=== PATIENT | female | born 1995 | race Caucasian/White ===

== ENCOUNTER → 2018-08-18 | Outpatient (CLI) | payer OTHER ==
--- NOTE | 2018-08-18 22:38 | MR ---
EXAMINATION TYPE: MR brain wo/w con DATE OF EXAM: 08/18/2018 COMPARISON: CT brain March 28, 2000 HISTORY: Visual field defect /Disturbance TECHNIQUE: Multiplanar, multisequence images of the brain and brainstem is performed without and with IV contras t, utilizing 5.5 mL intravenous Gadavist . FINDINGS: Diffusion weighted images demonstrate no evidence of a recent infarct or other diffusion ab normality. There is no worrisome extra-axial fluid collection. The ventricular system and cisternal spaces are normal in size and appearance. The brain volume is age appropriate. Nonspecific increase d T2 signal right parietal occipital level axial images 21 through 25 seen best on FLAIR sequences no laura. Midline structures demonstrate normal morphology. The craniocervical junction appears within normal limits. Post contrast images demonstrate no abnormal enhancement. The dural venous sinuses appear pa tent. The visualized sinuses are clear and the globes are intact. Suprasellar cistern is maintained. Optic chiasm is not effaced. No suspicious enhancement along course of optic nerves is clearly seen. IMPRESSION: Nonspecific vague but confluent T2 hyperintense signal right parietal region without susp icious enhancement of uncertain etiology. Consider short-term follow-up MRI in 3-6 months time to elijah ssess.
== END | disposition home or self-care (01) ==
LOC: RADMRIMAIN 16:14
PROVIDERS: ATTEND Ophthalmology
DX: R93.0 Abnormal findings on diagnostic imaging of skull and head, not elsewhere classified (principal); H53.462 Homonymous bilateral field defects, left side; H53.19 Other subjective visual disturbances
CPT/HCPCS: 70553; A9585

== ENCOUNTER → 2018-12-02 | Outpatient (CLI) | payer OTHER ==
--- NOTE | 2018-12-02 23:11 | MR ---
EXAMINATION TYPE: MR brain wo/w con DATE OF EXAM: 12/02/2018 COMPARISON: MRI brain August 18, 2018 HISTORY: Visual field defect, prior abnormal MRI TECHNIQUE: Multiplanar, multisequence images of the brain and brainstem is performed without and with IV contras t, utilizing 6.5 mL intravenous Gadavist . FINDINGS: Diffusion weighted images demonstrate no evidence of a recent infarct or other diffusion ab normality. There is no worrisome extra-axial fluid collection. The ventricular system and cisternal spaces are normal in size and appearance. The brain volume is age appropriate. There is persistent confluent increased T2 signal in intensity in the bilateral occipital white matter most prominent axi al image 17 for reference, right greater than left. No significant change from prior MRI. There is ad ditional involvement in the high right parietal occipital white matter axial images 21 through 24 not significantly changed from prior. Midline structures demonstrate normal morphology. The craniocervical junction appears within normal limits. Post contrast images demonstrate no abnormal enhancement. The dural venous sinuses appear pa tent. The visualized sinuses are clear and the globes are intact. IMPRESSION: Stable nonspecific vague but confluent T2 hyperintense signal posterior structures right more prominent than left, differential includes PRES. Other etiologies are not excluded. No enhanceme nt is noted. No significant change from prior MRI is noted.
== END | disposition home or self-care (01) ==
LOC: RADMRIMAIN 20:40
PROVIDERS: ATTEND Psychiatry & Neurology Neurology
DX: R90.89 Other abnormal findings on diagnostic imaging of central nervous system (principal)
CPT/HCPCS: 70553; A9585

== ENCOUNTER → 2025-01-03 | Outpatient (CLI) | payer OTHER ==
[2025-01-03 14:52] LABS: HCT 44.1 % (37.2-46.3); HGB 14.5 g/dL (12.0-15.0); MCH 29.2 pg (27.0-32.0); MCHC 32.9 g/dL (32.0-37.0); MCV 88.7 FL (80.0-97.0); NRBC Per 100 WBC 0 X 10*3/uL (0.00-0.01); Platelet Count 227 X 10*3/uL (140-440); RBC 4.97 X 10*6/uL (4.10-5.20); RDW 12.7 % (11.5-14.5)
[2025-01-03 15:20] LABS: BUN/Creat Ratio 11.57 Ratio (12.00-20.00); Blood Urea Nitrogen 8.1 mg/dL (9.0-27.0); Chloride 105 mmol/L (96-109); Glucose 99 mg/dL (70-110); LDL Cholesterol,Calculated 83.3 mg/dL (0.0-131.0); Potassium 3.8 mmol/L (3.5-5.5); Sodium 140 mmol/L (135-145)
[2025-01-03 15:21] LABS: ALT 14 U/L (8-44); AST 14 U/L (13-35); Albumin 4.3 g/dL (3.8-4.9); Albumin/Globulin Ratio 1.95 Ratio (1.60-3.17); Alkaline Phosphatase 49 U/L (41-126); Calcium 9.2 mg/dL (8.7-10.3); Carbon Dioxide 23.2 mmol/L (21.6-31.8); Globulin 2.2 g/dL (1.6-3.3); Total Bilirubin 0.4 mg/dL (0.3-1.2); Total Protein 6.5 g/dL (6.2-8.2)
== END | disposition home or self-care (01) ==
LOC: LABWHC1 08:45
PROVIDERS: ATTEND Family Medicine
DX: N94.6 Dysmenorrhea, unspecified (principal); E66.3 Overweight
CPT/HCPCS: 36415; 80053; 80061; 84443; 85027